=== PATIENT | male | born 1995 | race African-American/Black ===

== ENCOUNTER 2020-04-07 19:35 | Emergency (ER) | payer OTHER ==
[~2020-04-07] VITALS: Ht 172.7 cm; Wt 77.3 kg
[2020-04-07 19:42] VITALS: TEMP 97.6
[2020-04-07] MEDS ORDERED: NORCO 325 MG-51 TAB PO (21:38)
[2020-04-07 22:00] VITALS: BP 126/87; PULSE 61
== END 2020-04-07 22:05 | disposition home or self-care (01) ==
LOC: COL.ER 19:35
DX: S43.085A Other dislocation of left shoulder joint, initial encounter (principal); W19.XXXA Unspecified fall, initial encounter; Y92.39 Other specified sports and athletic area as the place of occurrence of the external cause
CPT/HCPCS: J1885; J2060; J3010

== ENCOUNTER 2020-05-08 11:10 | Emergency (ER) | payer OTHER ==
[~2020-05-08] VITALS: Ht 172.7 cm; Wt 77.3 kg
[~2020-05-08 11:10] MED LIST: NORCO 325 MG-51 TAB PO
[2020-05-08 11:14] VITALS: BP 134/87; TEMP 98.1
[2020-05-08] MEDS ORDERED: NORCO 325 MG-51 TAB PO (12:22)
[2020-05-08 12:31] VITALS: PULSE 65
== END 2020-05-08 12:31 | disposition home or self-care (01) ==
LOC: COL.ER 11:10
DX: S49.92XA Unspecified injury of left shoulder and upper arm, initial encounter (principal); X50.1XXA Overexertion from prolonged static or awkward postures, initial encounter; Y93.71 Activity, boxing